=== PATIENT | female | born 1985 | race Caucasian/White ===

== ENCOUNTER 2022-03-28 13:58 | Outpatient (RCR) | payer OTHER, MEDICAID, SELFPAY ==
[2022-03-29] MEDS: RHO(D) IMMUNE GLOBULIN 300 MCG/2 ML SYRINGE IM (14:34)
== END 2022-06-26 23:59 | disposition home or self-care (01) ==
LOC: ANHLAB 13:58
PROVIDERS: Visit Provider Obstetrics & Gynecology
DX: Z29.13 Encounter for prophylactic Rho(D) immune globulin (principal); O36.0190 Maternal care for anti-D [Rh] antibodies, unspecified trimester, not applicable or unspecified; Z3A.00 Weeks of gestation of pregnancy not specified
CPT/HCPCS: 36415; 85461; 90384; 96372; J2790

== ENCOUNTER 2022-05-16 12:32 | Observation (INO) | payer OTHER, MEDICAID, SELFPAY ==
--- NOTE | 2022-05-16 12:32 | OBADM ---
This patient, Angelia Steele, admitted to the OB room OB Post 116 for observation. Patient/family oriented to hospital policies and general routines including ID bracelet, bed and alarms, visiting hours, pain management, procedures, bathroom and other care routines, personal items, smoking policy, room service/diet, and visiting hours. Patient/Family are encouraged to report perceived risks to care and to ask questions if they do not understand what they are told or what they should do.
[2022-05-16 12:45] VITALS: BMI 34.8
[2022-05-16 13:01] VITALS: BP 138/76; PULSE 86
[2022-05-16 13:16] VITALS: BP 140/80; PULSE 85
[2022-05-16 13:31] VITALS: BP 138/87; PULSE 99
[2022-05-16 13:37] LABS: Add Urine Microscopic? YES; Appearance Urine Cloudy (Clear); Bacteria Urine Trace /hpf; Bilirubin Urine Negative (Negative); Blood Urine Negative (Negative); Color Urine Yellow (Yellow); Glucose Urine UA Negative (Negative); Ketones Urine Trace mg/dL (Negative); Leukocyte Esterase Ur 1+ LEU/UL (NEGATIVE); Mucus Urine Rare /lpf; Nitrate Urine Negative (Negative); Protein Urine Negative (Negative); Specific Grav Ur 1.018 (1.001-1.035); Squamous Epithelial Cell Urine Moderate /hpf (Few); Urobilinogen Urine Negative mg/dL (<2.0); WBC Urine 0-3 /hpf (0-3)
[2022-05-16 13:46] VITALS: BP 117/63; PULSE 86
[2022-05-16 14:01] VITALS: BP 120/59; PULSE 87
--- NOTE | 2022-05-22 07:48 | P.PNOB_ITS ---
OB - Triage/Final Diagnosis Visit Information Comments/Additional reasons for admission: I have assessed the risk for this patient, Angelia Steele, and determined that she would benefit from observation care. Evaluation Laboratory results: Laboratory Tests 05/16/22 13:08 Urine Color Yellow Urine Appearance Cloudy H Urine pH 6.0 Ur Specific [place] 1.018 Urine Protein Negative Urine Glucose (UA) Negative Urine Ketones Trace Ur Blood (Man) Negative Urine Nitrate Negative Urine Bilirubin Negative Urine Urobilinogen Negative Ur Leukocyte Esterase 1+ H Urine WBC 0-3 Ur Squamous Epith Cells Moderate H Urine Bacteria Trace Urine Mucus Rare Final Diagnosis (1) Uterine contractions: Code(s): O47.9 - False labor, unspecified Status: Acute
== END 2022-05-16 14:04 | disposition home or self-care (01) ==
PROVIDERS: Admitting Provider Obstetrics & Gynecology; Visit Provider Obstetrics & Gynecology
DX: O47.03 False labor before 37 completed weeks of gestation, third trimester (principal); Z3A.35 35 weeks gestation of pregnancy
CPT/HCPCS: 81001; 87086; G0378; G0379

== ENCOUNTER 2022-05-17 14:58 | Observation (INO) | payer OTHER, MEDICAID, SELFPAY ==
--- NOTE | ~2022-05-17 | US_ITS ---
US renal BI 05/17/2022 17:10 Procedure: Realtime transabdominal ultrasound of the kidneys and bladder. Indication: Back pain Comparison: No prior studies for comparison. Findings: Renal echotexture is normal bilaterally without hydronephrosis, contour deforming mass or r enal calculus. The right kidney measures 11.2 cm and left kidney measures 12.3 cm. Bladder is not wel l distended for evaluation. Impression: 1: Unremarkable renal ultrasound. No stones, masses or hydronephrosis. Reviewed, dictated and finalized at location B. Impression: 1: Unremarkable renal ultrasound. No stones, masses or hydronephrosis.
--- NOTE | ~2022-05-17 | US_ITS ---
EXAMINATION: US OB limited w BPP DATE: 05/17/2022 17:12 INDICATION: Variables during third trimester TECHNIQUE: Real-time pelvic ultrasound was performed. The interpreting radiologist was not present fo r the study. COMPARISON: None. FINDINGS: There is a single living fetus in vertex presentation. The placenta is posterior. heart rate is 165 beats per minute (bpm). The amniotic fluid index is 13.3 cm which is normal (normal range: 7.9 c m to 24.9 cm). Biophysical profile performed by the technologist: breathing (30 sec sustained breathing in 30 minutes): 2 out of 2 movement (3 gross body movements in 30 minutes): 2 out of 2 tone (one episode of irzdhqq-sezolfjao-rrpirdd limb movement): 2 out of 2 Amniotic fluid pocket (2 cm): 2 out of 2 Total score: 8 out of 8 IMPRESSION: 1. Single living fetus in vertex presentation. 2. Biophysical profile 8 out of 8. 3. Normal amniotic fluid index. Reviewed, dictated and finalized at location A.
--- NOTE | 2022-05-17 14:58 | OBADM ---
This patient, Angelia Steele, admitted to the OB room OB Post 115 for observation. Patient/family oriented to hospital policies and general routines including ID bracelet, bed and alarms, visiting hours, pain management, procedures, bathroom and other care routines, personal items, smoking policy, room service/diet, and visiting hours. Patient/Family are encouraged to report perceived risks to care and to ask questions if they do not understand what they are told or what they should do.
[2022-05-17 15:41] VITALS: BP 147/92; PULSE 87
[2022-05-17 16:12] LABS: Basophils Percent Auto 0.1 % (0.2-1.2); Eosinophils Absolute Auto 0.1 K/mm3 (0-0.3); Eosinophils Percent Auto 0.7 % (0-4.4); Hematocrit 35.7 % (37.0-47.0); Hemoglobin 11.6 g/dL (12.0-15.0); Immature Granulocyte Absolute 0.02 K/mm3 (0.00-0.031); Immature Granulocyte Percent A 0.3 % (0-0.5); Lymphocytes Absolute Auto 1.43 K/mm3 (0.9-3.2); Lymphocytes Percent Auto 18.9 % (18.3-44.2); Mean Corpuscular HGB Conc 32.5 g/dl (32-36); Mean Corpuscular Hemoglobin 28.6 pg (26-34); Mean Corpuscular Volume 87.9 fl (80-100); Mean Platelet Volume 11.4 fl (7.4-10.4); Monocytes Absolute Auto 0.4 K/mm3 (0.1-0.6); Monocytes Percent Auto 5.8 % (2.6-8.5); Neutrophils Absolute Auto 5.6 K/mm3 (1.3-6.7); Neutrophils Percent Auto 74.2 % (45.5-73.1); Platelet Count Result 164 k/mm3 (150-375); Red Blood Count 4.06 M/mm3 (4.2-5.4); White Blood Count 7.6 K/mm3 (4.5-10.0)
[2022-05-17] MEDS: NIFEdipine 10 MG CAPSULE PO (16:20)
[2022-05-17 16:43] LABS: Alanine Aminotransferase 12 U/L (6-35); Albumin Level 4.1 g/dL (3.5-5.1); Alkaline Phosphatase 64 U/L (38-126); Anion Gap 9 mmol/L (8-16); Aspartate Amino Transferase 15 U/L (14-36); Bilirubin,Total 0.4 mg/dL (0.2-1.3); Blood Urea Nitrogen 10 mg/dL (7-17); Calcium 9.1 mg/dL (8.4-10.2); Carbon Dioxide 22 mmol/L (22-30); Chloride 106 mmol/L (98-107); Estimated Glomerular Filt Rate > 60; Glucose 73 mg/dL (65-110); Potassium 3.8 mmol/L (3.4-5.0); Sodium 137 mmol/L (137-145); Uric Acid 4.1 mg/dL (2.5-7.5)
[2022-05-17 16:44] LABS: Appearance Urine Clear (Clear); Bacteria Urine Trace /hpf; Bilirubin Urine Negative (Negative); Blood Urine Negative (Negative); Color Urine Yellow (Yellow); Glucose Urine UA Negative (Negative); Ketones Urine Trace mg/dL (Negative); Leukocyte Esterase Ur Negative LEU/UL (NEGATIVE); Mucus Urine Rare /lpf; Nitrate Urine Negative (Negative); Protein Urine Negative (Negative); RBC Urine 0-2 /hpf (0-2); Squamous Epithelial Cell Urine Rare /hpf (Few); Urobilinogen Urine 0.2 mg/dL (<2.0); WBC Urine 0-3 /hpf (0-3); pH Urine 6.5 (5.0-9.0)
[2022-05-17 16:51] LABS: Add Urine Microscopic? YES
[2022-05-17 17:05] VITALS: BP 140/81; PULSE 90; BMI 34.8
[2022-05-17 17:28] LABS: Total Protein Urine Random < 5 mg/dL; Ur Ttl Prot Creatinine Ratio < 0.05 mg/mg (0-0.20)
[2022-05-17 17:31] VITALS: BP 142/80; PULSE 93
[2022-05-17] MEDS: CYCLOBENZAPRINE HCL 10 MG TABLET PO (17:56)
--- NOTE | 2022-05-17 18:20 | PC.NURSE ---
Pt states she is feeling better and would like to be discharged.
--- NOTE | 2022-05-20 16:55 | PM.OBTRLD ---
OB - Triage/Final Diagnosis Visit Information Date of evaluation: 05/17/22 Reason for evaluation: other (pain) Comments/Additional reasons for admission: I have assessed the risk for this patient, Angelia Jordan Steele, and determined that she would benefit from observation care. Evaluation Laboratory results: Laboratory Tests 05/17/22 05/17/22 05/17/22 16:06 16:21 16:21 WBC 7.6 RBC 4.06 L Hgb 11.6 L Hct 35.7 L MCV 87.9 MCH 28.6 MCHC 32.5 RDW 14.0 Plt Count 164 MPV 11.4 H Immature Gran % (Auto) 0.3 Neut % (Auto) 74.2 H Lymph % (Auto) 18.9 [place] % (Auto) 5.8 Eos % (Auto) 0.7 Baso % (Auto) 0.1 L Lymph # (Auto) 1.43 [place] # (Auto) 0.4 Eos # (Auto) 0.1 Baso # (Auto) 0.0 Abs Immat Gran (auto) 0.02 Absolute Neuts (auto) 5.6 Absolute Nucleated RBC 0.0 Nucleated RBC % 0.0 Sodium 137 Potassium 3.8 Chloride 106 Carbon Dioxide 22 Anion Gap 9 BUN 10 Creatinine 0.70 Estim Creat Clear Calc Not Reportable Estimated GFR > 60 Glucose 73 Uric Acid 4.1 Calcium 9.1 Total Bilirubin 0.4 AST 15 ALT 12 Alkaline Phosphatase 64 Total Protein 8.0 Albumin 4.1 Urine Color Urine Appearance Urine pH Ur Specific [place] Urine Protein Urine Glucose (UA) Urine Ketones Ur Blood (Man) Urine Nitrate Urine Bilirubin Urine Urobilinogen Ur Leukocyte Esterase Urine RBC Urine WBC Ur Squamous Epith Cells Urine Bacteria Urine Mucus U Random Total Protein < 5 Urine Creatinine 92.0 Protein/Creat Ratio 2 < 0.05 05/17/22 16:22 WBC RBC Hgb Hct MCV MCH MCHC RDW Plt Count MPV Immature Gran % (Auto) Neut % (Auto) Lymph % (Auto) [place] % (Auto) Eos % (Auto) Baso % (Auto) Lymph # (Auto) [place] # (Auto) Eos # (Auto) Baso # (Auto) Abs Immat Gran (auto) Absolute Neuts (auto) Absolute Nucleated RBC Nucleated RBC % Sodium Potassium Chloride Carbon Dioxide Anion Gap BUN Creatinine Estim Creat Clear Calc Estimated GFR Glucose Uric Acid Calcium Total Bilirubin AST ALT Alkaline Phosphatase Total Protein Albumin Urine Color Yellow Urine Appearance Clear Urine pH 6.5 Ur Specific [place] 1.020 Urine Protein Negative Urine Glucose (UA) Negative Urine Ketones Trace Ur Blood (Man) Negative Urine Nitrate Negative Urine Bilirubin Negative Urine Urobilinogen 0.2 Ur Leukocyte Esterase Negative Urine RBC 0-2 Urine WBC 0-3 Ur Squamous Epith Cells Rare Urine Bacteria Trace Urine Mucus Rare U Random Total Protein Urine Creatinine Protein/Creat Ratio 2
--- NOTE | 2022-05-21 16:14 | PM.OBTRLD ---
OB - Triage/Final Diagnosis Visit Information Date of evaluation: 06/17/22 Reason for evaluation: other (abd pain) Comments/Additional reasons for admission: I have assessed the risk for this patient, Angelia Steele, and determined that she would benefit from observation care. Evaluation Laboratory results: Laboratory Tests 05/17/22 05/17/22 05/17/22 16:06 16:21 16:21 WBC 7.6 RBC 4.06 L Hgb 11.6 L Hct 35.7 L MCV 87.9 MCH 28.6 MCHC 32.5 RDW 14.0 Plt Count 164 MPV 11.4 H Immature Gran % (Auto) 0.3 Neut % (Auto) 74.2 H Lymph % (Auto) 18.9 [place] % (Auto) 5.8 Eos % (Auto) 0.7 Baso % (Auto) 0.1 L Lymph # (Auto) 1.43 [place] # (Auto) 0.4 Eos # (Auto) 0.1 Baso # (Auto) 0.0 Abs Immat Gran (auto) 0.02 Absolute Neuts (auto) 5.6 Absolute Nucleated RBC 0.0 Nucleated RBC % 0.0 Sodium 137 Potassium 3.8 Chloride 106 Carbon Dioxide 22 Anion Gap 9 BUN 10 Creatinine 0.70 Estim Creat Clear Calc Not Reportable Estimated GFR > 60 Glucose 73 Uric Acid 4.1 Calcium 9.1 Total Bilirubin 0.4 AST 15 ALT 12 Alkaline Phosphatase 64 Total Protein 8.0 Albumin 4.1 Urine Color Urine Appearance Urine pH Ur Specific [place] Urine Protein Urine Glucose (UA) Urine Ketones Ur Blood (Man) Urine Nitrate Urine Bilirubin Urine Urobilinogen Ur Leukocyte Esterase Urine RBC Urine WBC Ur Squamous Epith Cells Urine Bacteria Urine Mucus U Random Total Protein < 5 Urine Creatinine 92.0 Protein/Creat Ratio 2 < 0.05 05/17/22 16:22 WBC RBC Hgb Hct MCV MCH MCHC RDW Plt Count MPV Immature Gran % (Auto) Neut % (Auto) Lymph % (Auto) [place] % (Auto) Eos % (Auto) Baso % (Auto) Lymph # (Auto) [place] # (Auto) Eos # (Auto) Baso # (Auto) Abs Immat Gran (auto) Absolute Neuts (auto) Absolute Nucleated RBC Nucleated RBC % Sodium Potassium Chloride Carbon Dioxide Anion Gap BUN Creatinine Estim Creat Clear Calc Estimated GFR Glucose Uric Acid Calcium Total Bilirubin AST ALT Alkaline Phosphatase Total Protein Albumin Urine Color Yellow Urine Appearance Clear Urine pH 6.5 Ur Specific [place] 1.020 Urine Protein Negative Urine Glucose (UA) Negative Urine Ketones Trace Ur Blood (Man) Negative Urine Nitrate Negative Urine Bilirubin Negative Urine Urobilinogen 0.2 Ur Leukocyte Esterase Negative Urine RBC 0-2 Urine WBC 0-3 Ur Squamous Epith Cells Rare Urine Bacteria Trace Urine Mucus Rare U Random Total Protein Urine Creatinine Protein/Creat Ratio 2
== END 2022-05-17 18:30 | disposition home or self-care (01) ==
PROVIDERS: Advanced Practice Midwife; Admitting Provider Obstetrics & Gynecology; Visit Provider Obstetrics & Gynecology
DX: O26.893 Other specified pregnancy related conditions, third trimester (principal); R10.9 Unspecified abdominal pain; M54.9 Dorsalgia, unspecified; Z3A.35 35 weeks gestation of pregnancy
CPT/HCPCS: 36415; 76775; 76815; 76819; 80053; 81001; 82570; 84156; 84550; 85025; 87086; A9270; G0378; G0379

== ENCOUNTER 2022-05-31 13:35 | Outpatient (RCR) | payer OTHER, MEDICAID, SELFPAY ==
[2022-04-06 18:50] VITALS: BP 127/87; PULSE 98
[2022-05-31 14:33] LABS: Creatinine Urine 72.3 mg/dL
[2022-05-31 14:39] LABS: Alanine Aminotransferase 12 U/L (6-35); Albumin Level 3.6 g/dL (3.5-5.1); Alkaline Phosphatase 59 U/L (38-126); Anion Gap 11 mmol/L (8-16); Aspartate Amino Transferase 16 U/L (14-36); Bilirubin,Total 0.2 mg/dL (0.2-1.3); Blood Urea Nitrogen 10 mg/dL (7-17); Calcium 8.7 mg/dL (8.4-10.2); Carbon Dioxide 21 mmol/L (22-30); Chloride 104 mmol/L (98-107); Estimated Glomerular Filt Rate > 60; Glucose 86 mg/dL (65-110); Potassium 3.8 mmol/L (3.4-5.0); Sodium 136 mmol/L (137-145)
[2022-05-31 14:45] LABS: Hematocrit 35.5 % (37.0-47.0); Hemoglobin 11.3 g/dL (12.0-15.0); Mean Corpuscular HGB Conc 31.8 g/dl (32-36); Mean Corpuscular Hemoglobin 28.4 pg (26-34); Mean Corpuscular Volume 89.2 fl (80-100); Mean Platelet Volume 11.9 fl (7.4-10.4); Platelet Count Result 181 k/mm3 (150-375); Red Blood Count 3.98 M/mm3 (4.2-5.4); Red Cell Distribution Width 14.3 % (11.5-14.5); White Blood Count 6.8 K/mm3 (4.5-10.0)
[2022-05-31 14:54] LABS: Total Protein Urine Random < 5 mg/dL; Ur Ttl Prot Creatinine Ratio < 0.07 mg/mg (0-0.20)
[2022-05-31 15:34] LABS: Glucose Point of Care 77 mg/dl (65-105)
[2022-05-31] MEDS: SODIUM CHLORIDE 0.9% IV 500 ML IV CONT (15:37)
[2022-05-31] MEDS: diphenhydrAMINE HCl INJ 50 MG/ML VIAL 25 MG IV PUSH (15:39)
[2022-05-31] MEDS: PROCHLORPERAZINE EDISYLATE 10 MG/2 ML VIAL IV PUSH (15:43)
[2022-05-31 16:12] VITALS: BMI 35.0
== END 2022-05-31 16:45 | disposition home or self-care (01) ==
LOC: ANHOBOP 13:35
PROVIDERS: Visit Provider Obstetrics & Gynecology
DX: O36.8130 Decreased fetal movements, third trimester, not applicable or unspecified (principal); Z3A.30 30 weeks gestation of pregnancy
CPT/HCPCS: 36415; 59025; 80053; 82570; 82948; 84156; 84550; 85027; 96361; 96374; 96375; 99284; J0780; J1200; J7040

== ENCOUNTER 2022-06-03 07:11 | Inpatient (IN) | payer OTHER, MEDICAID, SELFPAY ==
[2022-06-03] VITALS (63 sets, daily range): BP systolic 112–162; BP diastolic 66–107; PULSE 67–150; RESP 14–18; TEMP 36.3–37.2; O2SAT 81–100; BMI 34.8
--- OUTSIDE RECORDS SUMMARY | 2022-06-03 07:21 | XMS_ITS | Encounter Summary ---
:1985 Author Reason for Visit None recorded. Assessment and Plan 1. Benign essential hypertension compli cating , childbirth and the puerperium - not delivered 2. History of section 3. Type 2 diabetes mellitus Discussion Note: None recorded.Patient educational handouts: No information available. Plan of Care Reminders Provider Appointments None recorded. ? ? Lab None recorded. ? ? Referral None recorded. ? ? Procedures None recorded. ? ? Surgeries None recorded. ? ? Imaging None recorded. ? ? Medications Name Start Date ? ? Baby Aspirin ? BD Lili 2nd Gen Pen Needle 32 gauge x ? TO BE USED WITH INSULIN PEN EVERY DAY cephalexin 500 mg capsule ? cyclobenzaprine 5 mg tablet ? Take 1 tablet 3 times a day by oral route as needed. Dexcom G6 Manager Life Sciences misc ? Dexcom G6 Sensor device ? USE EVERY 10 DAYS Dexcom G6 Transmitter device ? USE DIRECTED TEST FOUR TIMES DAILY FreeStyle Lancets 28 gauge ? FreeStyle Lite Meter kit ? FreeStyle Lite Strips ? Humalog KwikPen (U-100) Insulin 100 unit/mL subcutaneo us ? INJECT 4 UNITS UNDER THE SKIN BEFORE BREAKFAST DAILY. MAX DOSE 50 UNITS DAILY Humulin N NPH U-100 Insulin KwikPen 100 unit/mL (3 mL) subcutaneous ? INJECT 18 UNITS EVERY NIGHT AT BEDTIME Levemir FlexTouch U-100 Insulin 100 unit/mL (3 mL) sub cutaneous pen ? ADMINISTER 22 UNITS UNDER THE SKIN EVER Y NIGHT AT BEDTIME. MAX DOSING 50 UNIT PER DAY mupirocin 2 % topical ointment ? APPLY TOPICALLY TO THE AFFECTED AREA THREE TIMES FERNANDA Y FOR 10 DAYS Vitamin ?
--- OUTSIDE RECORDS SUMMARY | 2022-06-03 07:21 | XMS_ITS | Encounter Summary ---
:1985 Author Reason for Visit OB visit Assessment and Plan 1. Type 2 diabetes mellitus ? HbA1c (hemoglobin A1c), blood 2. Routine care Discussion Note: None recorded.Patient educational handouts: No information available. Plan of Care Reminders Provider Appointments None recorded. ? ? Lab HbA1C (Hemoglobin a1C), 05/06/2022 [facility] Blood (Lab) Referral None recorded. ? ? Procedures None [...] by oral route as needed. Dexcom G6 Pipe Processor misc ? Dexcom G6 Sensor device ? [...] FERNANDA Y FOR 10 DAYS Vitamin ? Toujeo Max U-300
--- OUTSIDE RECORDS SUMMARY | 2022-06-03 07:21 | XMS_ITS | Encounter Summary ---
:1985 Author Reason for Visit None recorded. Assessment and Plan 1. Pre-existing type 2 diabetes mellitu s in ? non-stress test Discussion Note: None recorded.Patient educational handouts: No information available. Plan of Care Reminders Provider Appointments None recorded. ? ? Lab None recorded. ? ? Referral None recorded. ? ? Procedures None recorded. ? ? Surgeries None recorded. ? ? Imaging Non-stress Test 05/06/2022 [place] Medications Name Start Date ? ? Baby Aspirin ? BD Lili 2nd Gen Pen Needle 32 gauge x ? TO BE USED WITH INSULIN PEN EVERY DAY cephalexin 500 mg capsule ? cyclobenzaprine 5 mg tablet ? Take 1 tablet 3 times a day by oral route as needed. Dexcom G6 Ios Architect misc ? Dexcom G6 Sensor device ? [...] 10 DAYS Vitamin ? Toujeo Max U-300 SoloStar 300 unit/mL (3 mL) subcutane ous insulin pen ? Unisom (doxylamine) ? Medications Adminis
--- OUTSIDE RECORDS SUMMARY | 2022-06-03 07:21 | XMS_ITS | Encounter Summary ---
:1985 Author Reason for Visit OB visit Assessment and Plan Assessment Note Patient is ___weeks . Discussed plan. 1. Routine care Discussion Note: None recorded.Patient educational [...] by oral route as needed. Dexcom G6 Cycle Director misc ? Dexcom G6 Sensor device ? [...]
--- OUTSIDE RECORDS SUMMARY | 2022-06-03 07:21 | XMS_ITS | Encounter Summary ---
[...] None recorded. ? ? Imaging Non-stress Test 05/27/2022 [place] Medications Name Start Date ? ? Baby Aspirin ? BD Lili 2nd Gen Pen Needle 32 gauge x ? TO BE USED WITH INSULIN PEN EVERY DAY cephalexin 500 mg capsule ? cyclobenzaprine 5 mg tablet ? Take 1 tablet 3 times a day by oral route as needed. Dexcom G6 Stamp Machine Servicer misc ? Dexcom G6 Sensor device ? [...]
--- OUTSIDE RECORDS SUMMARY | 2022-06-03 07:21 | XMS_ITS | Encounter Summary ---
:1985 Author Reason for Visit OB visit Assessment and Plan 1. Benign essential hypertension [...] oral route as needed. Dexcom G6 Manager Product Marketing misc ? Dexcom G6 Sensor device ? [...] FERNANDA Y FOR 10 DAYS Vitamin ? T
--- OUTSIDE RECORDS SUMMARY | 2022-06-03 07:21 | XMS_ITS | Encounter Summary ---
[...] None recorded. ? ? Imaging Non-stress Test 04/29/2022 [place] Medications Name Start Date ? ? Baby Aspirin ? BD Lili 2nd Gen Pen Needle 32 gauge x ? TO BE USED WITH INSULIN PEN EVERY DAY cephalexin 500 mg capsule ? cyclobenzaprine 5 mg tablet ? Take 1 tablet 3 times a day by oral route as needed. Dexcom G6 Workers Compensation Consultant misc ? Dexcom G6 Sensor device ? [...]
--- OUTSIDE RECORDS SUMMARY | 2022-06-03 07:21 | XMS_ITS | Encounter Summary ---
[...] None recorded. ? ? Imaging Non-stress Test 05/09/2022 [place] Medications Name Start Date ? ? Baby Aspirin ? BD Lili 2nd Gen Pen Needle 32 gauge x ? TO BE USED WITH INSULIN PEN EVERY DAY cephalexin 500 mg capsule ? cyclobenzaprine 5 mg tablet ? Take 1 tablet 3 times a day by oral route as needed. Dexcom G6 Computer Repairer misc ? Dexcom G6 Sensor device ? [...]
--- OUTSIDE RECORDS SUMMARY | 2022-06-03 07:21 | XMS_ITS | Encounter Summary ---
:1985 Author Reason for Visit OB visit Assessment and Plan 1. Benign essential hypertension compli cating , childbirth and the puerperium - not delivered 2. Complication due to diabetes mellitu s 3. History of section Discussion Note: None recorded.Patient educational handouts: No [...] by oral route as needed. Dexcom G6 General Laborer misc ? Dexcom G6 Sensor device ? [...]
--- OUTSIDE RECORDS SUMMARY | 2022-06-03 07:21 | XMS_ITS | Encounter Summary ---
[...] None recorded. ? ? Imaging Non-stress Test 05/02/2022 [place] Medications Name Start Date ? ? Baby Aspirin ? BD Lili 2nd Gen Pen Needle 32 gauge x ? TO BE USED WITH INSULIN PEN EVERY DAY cephalexin 500 mg capsule ? cyclobenzaprine 5 mg tablet ? Take 1 tablet 3 times a day by oral route as needed. Dexcom G6 Development Educator misc ? Dexcom G6 Sensor device ? [...]
--- OUTSIDE RECORDS SUMMARY | 2022-06-03 07:21 | XMS_ITS | Encounter Summary ---
:1985 Author Reason for Visit None recorded. Assessment and Plan 1. Benign essential hypertension compli cating , childbirth and the puerperium - not delivered ? US, obstetric, follow-up Discussion Note: None recorded.Patient educational handouts: No information available. Plan of Care Reminders Provider Appointments None recorded. ? ? Lab None recorded. ? ? Referral None recorded. ? ? Procedures None recorded. ? ? Surgeries None recorded. ? ? Imaging US, Obstetric, Follow-up 05/20/2022 [place] Medications Name Start Date ? ? Baby Aspirin ? BD Lili 2nd Gen Pen Needle 32 gauge x ? TO BE USED WITH INSULIN PEN EVERY DAY cephalexin 500 mg capsule ? cyclobenzaprine 5 mg tablet ? Take 1 tablet 3 times a day by oral route as needed. Dexcom G6 Gymnasium Teacher misc ? Dexcom G6 Sensor device ? [...]
--- OUTSIDE RECORDS SUMMARY | 2022-06-03 07:21 | XMS_ITS ---
:1985 Author Care Team Providers Name Role Phone Pamela [facility]on Primary Care Provider Unavailable Allergies Code Code System Name Reaction Severity Status Onset 7052 RxNorm Morphine ? ? Active ? Medications Name Status Start Date Stop Date ? ? Baby Aspirin Active ? Not available BD Lili 2nd Gen Pen Needle 32 gauge x Active ? Not available TO BE USED WITH INSULIN PEN EVERY DAY cephalexin 500 mg capsule Active ? Not av ailable cyclobenzaprine 5 mg tablet Active ? Not available Dexcom G6 Machine Dyer misc Active ? Not avai lable Dexcom G6 Sensor device Active ? Not avai lable Dexcom G6 Transmitter device Active ? Not available FreeStyle Lancets 28 gauge Active ? Not a vailable FreeStyle Lite Meter kit Active ? Not amanda ilable FreeStyle Lite Strips Active ? Not availa ble Humalog KwikPen (U-100) Insulin 100 unit/mL subcutaneous Active ? Not available INJECT 4 UNITS UNDER THE SKIN BEFORE BREAKFAST DAILY. MAX D OSE 50 UNITS DAILY Humulin N NPH U-100 Insulin KwikPen 100 unit/mL (3 mL) subcutane ous Active ? Not available INJECT 18 UNITS EVERY NIGHT AT BEDTIME Levemir FlexTouch U-100 Insulin 100 unit/mL (3 Active ? Not available mL) subcutaneous pen metformin 850 mg tablet Completed 09/08/2018 12/11/19 22 TAKE 1 TABLET BY MOUTH TWICE A DAY WITH MORNING AND EVENING HARSH L mupirocin 2 % topical ointment Active ? N ot available APPLY TOPICALLY TO THE AFFECTED AREA THREE TIMES DAILY FOR 10 D AYS Vitamin Active ? Not available Toujeo Max U-300 SoloStar 300 unit/mL (3 mL) Active ? Not available subcutaneous insulin pen Unisom (doxylamine) Act
--- OUTSIDE RECORDS SUMMARY | 2022-06-03 07:21 | XMS_ITS | Encounter Summary ---
:1985 Author Reason for Visit None recorded. Assessment and Plan 1. Gestational diabetes mellitus, class A>2< ? non-stress test Discussion Note: None recorded.Patient educational handouts: No information available. Plan of Care Reminders Provider Appointments None recorded. ? ? Lab None recorded. ? ? Referral None recorded. ? ? Procedures None recorded. ? ? Surgeries None recorded. ? ? Imaging Non-stress Test 05/23/2022 [place] Medications Name Start Date ? ? Baby Aspirin ? BD Lili 2nd Gen Pen Needle 32 gauge x ? TO BE USED WITH INSULIN PEN EVERY DAY cephalexin 500 mg capsule ? cyclobenzaprine 5 mg tablet ? Take 1 tablet 3 times a day by oral route as needed. Dexcom G6 Button Inspector misc ? Dexcom G6 Sensor device ? [...] insulin pen ? Unisom (doxylamine) ? Medications Administered
--- OUTSIDE RECORDS SUMMARY | 2022-06-03 07:21 | XMS_ITS | Encounter Summary ---
[...] None recorded. ? ? Imaging Non-stress Test 04/25/2022 [place] Medications Name Start Date ? ? Baby Aspirin ? BD Lili 2nd Gen Pen Needle 32 gauge x ? TO BE USED WITH INSULIN PEN EVERY DAY cephalexin 500 mg capsule ? cyclobenzaprine 5 mg tablet ? Take 1 tablet 3 times a day by oral route as needed. Dexcom G6 Food Photographer misc ? Dexcom G6 Sensor device ? [...] insulin pen ? Unisom (doxylamine) ? Medications Administ
--- OUTSIDE RECORDS SUMMARY | 2022-06-03 07:21 | XMS_ITS | Encounter Summary ---
[...] None recorded. ? ? Imaging Non-stress Test 05/13/2022 [place] Medications Name Start Date ? ? Baby Aspirin ? BD Lili 2nd Gen Pen Needle 32 gauge x ? TO BE USED WITH INSULIN PEN EVERY DAY cephalexin 500 mg capsule ? cyclobenzaprine 5 mg tablet ? Take 1 tablet 3 times a day by oral route as needed. Dexcom G6 Nuclear Technician misc ? Dexcom G6 Sensor device ? [...]
--- OUTSIDE RECORDS SUMMARY | 2022-06-03 07:21 | XMS_ITS | Encounter Summary ---
[...] None recorded. ? ? Imaging Non-stress Test 05/20/2022 [place] Medications Name Start Date ? ? Baby Aspirin ? BD Lili 2nd Gen Pen Needle 32 gauge x ? TO BE USED WITH INSULIN PEN EVERY DAY cephalexin 500 mg capsule ? cyclobenzaprine 5 mg tablet ? Take 1 tablet 3 times a day by oral route as needed. Dexcom G6 Photo Journalist misc ? Dexcom G6 Sensor device ? [...]
--- OUTSIDE RECORDS SUMMARY | 2022-06-03 07:22 | XMS_ITS | Encounter Summary ---
:1985 Author Reason for Visit None recorded. Assessment and Plan 1. Chronic hypertension complicating AN D/OR reason for care during ? US, obstetric, follow-up Discussion Note: None recorded.Patient educational handouts: No information available. Plan of Care Reminders Provider Appointments None recorded. ? ? Lab None recorded. ? ? Referral None recorded. ? ? Procedures None recorded. ? ? Surgeries None recorded. ? ? Imaging US, Obstetric, Follow-up 03/29/2022 [place] Medications Name Start Date ? ? Baby Aspirin ? BD Lili 2nd Gen Pen Needle 32 gauge x ? TO BE USED WITH INSULIN PEN EVERY DAY cephalexin 500 mg capsule ? cyclobenzaprine 5 mg tablet ? Take 1 tablet 3 times a day by oral route as needed. Dexcom G6 Dynamometer Mechanic misc ? Dexcom G6 Sensor device ? [...] mL) subcutane ous insulin pen ? Unisom (doxylamin
--- OUTSIDE RECORDS SUMMARY | 2022-06-03 07:22 | XMS_ITS | Encounter Summary ---
[...] by oral route as needed. Dexcom G6 Crutching Contractor misc ? Dexcom G6 Sensor device ? [...]
--- OUTSIDE RECORDS SUMMARY | 2022-06-03 07:22 | XMS_ITS | Encounter Summary ---
:1985 Author Reason for Visit None recorded. Assessment and Plan 1. Gestational diabetes mellitus, class A>2< ? US, obstetric, follow-up ? US, obstetric, biophysical profile + non-stress test Discussion Note: None recorded.Patient educational handouts: No information available. Plan of Care Reminders Provider Appointments None recorded. ? ? Lab None recorded. ? ? Referral None recorded. ? ? Procedures None recorded. ? ? Surgeries None recorded. ? ? Imaging US, Obstetric, Follow-up 04/22/2022 [place] ? US, Obstetric, Biophysical Profile + [place] Non-stress Test Medications Name Start Date ? ? Baby Aspirin ? BD Lili 2nd Gen Pen Needle 32 gauge x ? TO BE USED WITH INSULIN PEN EVERY DAY cephalexin 500 mg capsule ? cyclobenzaprine 5 mg tablet ? Take 1 tablet 3 times a day by oral route as needed. Dexcom G6 Transformer Coil Winder misc ? Dexcom G6 Sensor device ? [...] ? APPLY TOPICALLY TO THE AFFECTED AREA TH
--- OUTSIDE RECORDS SUMMARY | 2022-06-03 07:22 | XMS_ITS | Encounter Summary ---
[...] by oral route as needed. Dexcom G6 Ed Manager misc ? Dexcom G6 Sensor device ? [...]
--- OUTSIDE RECORDS SUMMARY | 2022-06-03 07:22 | XMS_ITS | Encounter Summary ---
[...] None recorded. ? ? Imaging Non-stress Test 04/22/2022 [place] Medications Name Start Date ? ? Baby Aspirin ? BD Lili 2nd Gen Pen Needle 32 gauge x ? TO BE USED WITH INSULIN PEN EVERY DAY cephalexin 500 mg capsule ? cyclobenzaprine 5 mg tablet ? Take 1 tablet 3 times a day by oral route as needed. Dexcom G6 Operations Research Director misc ? Dexcom G6 Sensor device [...]
--- OUTSIDE RECORDS SUMMARY | 2022-06-03 07:22 | XMS_ITS | Encounter Summary ---
:1985 Author Reason for Visit OB visit Assessment and Plan 1. Benign essential hypertension compli cating , childbirth and the puerperium - not delivered 2. History of section ? section (SURG) 3. Type 2 diabetes mellitus Discussion Note: None recorded.Patient educational handouts: No information available. Plan of Care Reminders Provider Appointments None recorded. ? ? Lab None recorded. ? ? Referral None recorded. ? ? Procedures None recorded. ? ? Surgeries Section (SURG) 04/03/2022 [facility] None recorded. ? ? Medications Name Start Date ? ? Baby Aspirin ? BD Lili 2nd Gen Pen Needle 32 gauge x /32 ? TO BE USED WITH INSULIN PEN EVERY DAY cephalexin 500 mg capsule ? cyclobenzaprine 5 mg tablet ? Take 1 tablet 3 times a day by oral route as needed. Dexcom G6 Plant Technician misc ? Dexcom G6 Sensor device [...] TO THE AFFECTED AREA THREE TIMES FERNANDA Worthy
--- NOTE | 2022-06-03 07:31 | LDADM ---
This patient, Angelia Steele, was admitted to Labor/Delivery/Recovery 119 on 06/03/22 at 07:11. Plans for labor, pain management and were discussed with patient. Patient/family oriented to hospital policies and general routines including ID bracelet, bed and alarms, visiting hours, pain management, procedures, bathroom and other care routines, personal items, smoking policy, room service/diet and guest tray routines, security routines, and visiting hours. Patient/Family are encouraged to report perceived risks to care and to ask questions if they do not understand what they are told or what they should do. See [facility] for further documentation.
[2022-06-03] MEDS: LACTATED RINGERS 1,000 ML 125 ML IV CONT (07:40)
[2022-06-03 07:44] LABS: Basophils Percent Auto 0.3 % (0.2-1.2); Eosinophils Absolute Auto 0.1 K/mm3 (0-0.3); Eosinophils Percent Auto 0.7 % (0-4.4); Hematocrit 37.2 % (37.0-47.0); Hemoglobin 12.1 g/dL (12.0-15.0); Immature Granulocyte Absolute 0.02 K/mm3 (0.00-0.031); Immature Granulocyte Percent A 0.3 % (0-0.5); Lymphocytes Absolute Auto 1.32 K/mm3 (0.9-3.2); Lymphocytes Percent Auto 17.6 % (18.3-44.2); Mean Corpuscular HGB Conc 32.5 g/dl (32-36); Mean Corpuscular Hemoglobin 28.3 pg (26-34); Mean Corpuscular Volume 86.9 fl (80-100); Monocytes Absolute Auto 0.4 K/mm3 (0.1-0.6); Monocytes Percent Auto 5.2 % (2.6-8.5); Neutrophils Absolute Auto 5.7 K/mm3 (1.3-6.7); Neutrophils Percent Auto 75.9 % (45.5-73.1); Platelet Count Result 178 k/mm3 (150-375); Red Blood Count 4.28 M/mm3 (4.2-5.4); Red Cell Distribution Width 14.5 % (11.5-14.5); White Blood Count 7.5 K/mm3 (4.5-10.0)
--- NOTE | 2022-06-03 08:52 | WPDANESEPPF ---
Anes - Initial Pre Proc Eval Procedure: Operation Date: 06/03/22 09:00 Proposed Procedures p Repeat Section - Pamela Lennon MD Date/Time: 06/03/22 08:52 Surgeon: Pamela Lennon MD Pre Op Diagnosis: R C/S Patient Data Age: 36 Gender: F Height: 1.68 m Weight: 98 kg Last Vital Signs Pulse 84 06/03/22 08:01 BP 144/83 H 06/03/22 08:01 O2 Del Method Room Air 06/03/22 07:30 Allergies Allergy/AdvReac Type Severity Reaction Status Date / Time No Known Allergies Allergy Unverified 03/21/16 09:59 Home Medications Medication Instructions Recorded Confirmed Type aspirin 81 mg tablet 81 mg PO DAILY 05/16/22 06/03/22 History blood-glucose sensor (Dexcom G6 05/16/22 05/16/22 History Sensor device) blood-glucose sensor (Dexcom G6 05/16/22 05/16/22 History Sensor device) insulin glargine U-300 conc 300 10 unit subcut DAILY 05/16/22 06/03/22 History unit/mL (1.5 mL) subcutaneous pen (Toujeo SoloStar U-300 Insulin) insulin glargine U-300 conc 300 106 unit subcut DAILY 05/16/22 06/03/22 History unit/mL (1.5 mL) subcutaneous pen (Toujeo SoloStar U-300 Insulin) insulin lispro 100 unit/mL 4 unit subcut DAILY PRN 05/16/22 06/03/22 History subcutaneous pen (Humalog KwikPen Hyperglycemia (U-100) Insulin) prenat.vits,madison,[id number] 1 tablet PO DAILY 05/16/22 06/03/22 History Laboratory Tests 06/03/22 06/03/22 06/03/22 07:37 07:37 07:38 WBC 7.5 K/mm3 K/mm3 (4.5-10.0) RBC 4.28 M/mm3 M/mm3 (4.2-5.4) Hgb 12.1 g/dL g/dL (12.0-15.0) Hct 37.2 % % (37.0-47.0) MCV 86.9 fl fl (80-100) MCH 28.3 pg pg (26-34) MCHC 32.5 g/dl g/dl (32-36) RDW 14.5 % % (11.5-14.5) Plt Count 178 k/mm3 k/mm3 (150-375) MPV 12.0 fl H fl (7.4-10.4) Immature Gran % (Auto) 0.3 % % (0-0.5) Neut % (Auto) 75.9 % H % (45.5-73.1) Lymph % (Auto) 17.6 % L % (18.3-44.2) [place] % (Auto) 5.2 % % (2.6-8.5) Eos % (Auto) 0.7 % % (0-4.4) Baso % (Auto) 0.3 % % (0.2-1.2) Lymph # (Auto) 1.32 K/mm3 K/mm3 (0.9-3.2) [place] # (Auto) 0.4 K/mm3 K/mm3 (0.1-0.6) Eos # (Auto) 0.1 K/mm3 K/mm3 (0-0.3) Baso # (Auto) 0.0 K/mm3 K/mm3 (0.0-0.1) Abs Immat Gran (auto) 0.02 K/mm3 K/mm3 (0.00-0.031) Absolute Neuts (auto) 5.7 K/mm3 K/mm3 (1.3-6.7) Absolute Nucleated RBC 0.0 K/mm3 K/mm3 (0.0-0.012) Nucleated RBC % 0.0 % % (0.0-0.2) RPR Pending Blood Type A Negative Antibody Screen Positive Antibody Identification Pending Antigen Identification Pending CONY, IgG Interpret Pending CONY, Poly Interpret Pending CONY, Complement Interp Pending Patient hx anesthesia problems: none Family hx anesthesia problems: none Results Review: All pre-operative results and documents have been reviewed as part of the pre-operative evaluation. [facility] Past Medical History Medical History (Updated 06/03/22 @ 09:02 by Pamela Lennon MD) GDM (gestational diabetes mellitus) Obesity Family History Family History (Updated 05/16/22 @ 14:30 by Toma Weston RN) Grandparent Diabetes mellitus Mother Hypertension Social History Social History Smoking status: Never smoker Substance use: never Lack of Transportation: No Lack of Food: Never True Current Housing: I Have Housing Concerned About Future Housing: No Difficulty Paying Gas/Electric Bills: No Difficulty Paying for Meds: No Currently Unemployed: No Education: Master's Degree or Higher Difficulty w/ Childcare or Family Care: No Spiritual care concerns: No Anes - Eval Final PreProcedure Day of Procedure 06/03/22 08:52 Patient weight: obese Heart: regular rate and rhythm
--- NOTE | 2022-06-03 08:57 | PM.IMHP ---
H&P: HPI History of Present Illness Date/Time: 06/03/22 08:57 Chief Complaint: repeat CS Narrative: Angelia is a 36yo at 38.2 for repeat CS. She has cHTN and DM2, sugars managed by Franca LLOYD on Toujeo and regular insulin. To start 40u Lantus HS after CS. PIH labs wnl on Fri when she had LOPEZ, resolved, none since. Also Rh neg. Review of Systems Review of Systems: All systems reviewed & are unremarkable except as noted in HPI and below PMFSH Past Medical History Medical History (Updated 06/03/22 @ 09:02 by Pamela Lennon MD) GDM (gestational diabetes mellitus) Obesity Family History Family History (Updated 05/16/22 @ 14:30 by Toma Weston RN) Grandparent Diabetes mellitus Mother Hypertension Social History Social History Smoking status: Never smoker Substance use: never Lack of Transportation: No Lack of Food: Never True Current Housing: I Have Housing Concerned About Future Housing: No Difficulty Paying Gas/Electric Bills: No Difficulty Paying for Meds: No Currently Unemployed: No Education: Master's Degree or Higher Difficulty w/ Childcare or Family Care: No Spiritual care concerns: No Meds Home Medications and Allergies Home Medications Medication Instructions Recorded Confirmed Type aspirin 81 mg tablet 81 mg PO DAILY 05/16/22 06/03/22 History blood-glucose sensor (Dexcom G6 05/16/22 05/16/22 History Sensor device) blood-glucose sensor (Dexcom G6 05/16/22 05/16/22 History Sensor device) insulin glargine U-300 conc 300 10 unit subcut DAILY 05/16/22 06/03/22 History unit/mL (1.5 mL) subcutaneous pen (Toujeo SoloStar U-300 Insulin) insulin glargine U-300 conc 300 106 unit subcut DAILY 05/16/22 06/03/22 History unit/mL (1.5 mL) subcutaneous pen (Toujeo SoloStar U-300 Insulin) insulin lispro 100 unit/mL 4 unit subcut DAILY PRN 05/16/22 06/03/22 History subcutaneous pen (Humalog KwikPen Hyperglycemia (U-100) Insulin) prenat.vits,madison,[id number]-isndh 1 tablet PO DAILY 05/16/22 06/03/22 History Allergies Allergy/AdvReac Type Severity Reaction Status Date / Time No Known Allergies Allergy Unverified 03/21/16 09:59 Vital Signs Vital Signs - 24 hr 06/03/22 07:30 06/03/22 08:00 06/03/22 08:01 Pulse Rate 82 84 Blood Pressure 145/92 H 144/83 H Oxygen Delivery Room Air Exam Const: General: no acute distress Resp: Effort & Inspection: normal respiratory effort Auscultation: clear to auscultation bilaterally Cardio: Rate: regular rate Rhythm: regular rhythm GI: GI Palp: Yes Soft to palpation Extrem: General: normal to inspection H&P: Results Labs Labs: Short CBC 06/03/22 Range/Units 07:37 WBC 7.5 (4.5-10.0) K/mm3 Hgb 12.1 (12.0-15.0) g/dL Hct 37.2 (37.0-47.0) % Plt Count 178 (150-375) k/mm3 Assessment and Plan Assessment and plan (1) Chronic hypertension affecting : Code(s): O10.919 - Unspecified pre-existing hypertension complicating , unspecified trimester Status: Acute (2) S/P repeat low transverse : Code(s): Z98.891 - History of uterine scar from previous surgery Status: Acute (3) DM2 (diabetes mellitus, type 2): Code(s): E11.9 - Type 2 diabetes mellitus without complications Status: Acute Plan consented for R CS lantus 40u HS starting tonight per MFM recent normal PIH labs, BPs at baseline will proceed
[2022-06-03] MEDS: DEXTROSE 5%/0.45% SOD CHL 1,000 ML 75 ML (09:00)
[2022-06-03] MEDS: ceFAZolin 2 GM/D5W 50 ML 2 GM/50 ML BAG IVPB (09:03)
--- NOTE | 2022-06-03 09:04 | WPDHPUPDATE1 ---
History and Physical Update Update Date/Time: 06/03/22 09:04 History and Physical has been reviewed, including an updated exam of the patient. There are NO changes in the patient's condition. Risks, benefits, and alternatives have been discussed and questions answered. Patient agrees to proceed with procedure.
--- NOTE | 2022-06-03 10:23 | P.PCNOB_ITS ---
OB - Delivery Note Procedure Delivery date: 06/03/22 Procedure: Procedures Operation Date: 06/03/22 09:00 <No data on this case meets the specified criteria> Repeat Low Transverse Section Events: Chronic Hypertension and Diabetes Mellitus Route of delivery: Specimen: Yes (placenta) Quantitative Blood Loss (ml): 465 Anesthesia type: Spinal Disposition: Floor Complications: none Narrative: The patient was taken to the OR and received spinal anesthesia. She was placed in dorsal supine position with left lateral tilt. SCDs and juarez were placed. She was prepped and draped in the normal sterile fashion. A Pfannensteil skin incision was made and carried through to the underlying layer of fascia. The fascia was incised in the midline and then extended laterally using Hilario scissors. The muscles were in the midline and the peritoneum was entered bluntly. The peritoneal incision was extended inferiorly and superiorly with care to avoid the bladder. The bladder blade was then inserted, the vesicouterine peritoneum was grasped, incised with Metzenbaum scissors, and a bladder flap created. The bladder blade was reinserted. A low transverse uterine incision was made with a scalpel and extended bluntly. AROM was performed and fluid was noted to be clear. The head was delivered, followed by the remainder of the baby. The baby's oropharynx was suctioned. A fter 30 seconds, the cord was clamped and cut and the infant was handed off. Cord blood was obtained and the placenta was then removed manually. The uterus was exteriorized. A moist lap sponge was used to curette the endometrium. The uterine incision was then closed with two layers of 0-Vicryl in a running, locking fashion. Good hemostasis was noted. The posterior cul de sac was irrigated with normal saline and cleared of all clot and debris. The uterus was returned to the abdomen. Both lateral gutters were then irrigated. The rectus muscles were inspected and found to be hemostatic. The fascia was reapproximated using 0-Vicryl in running fashion. The subcutaneous tissue was irrigated with normal saline and made hemostatic with Bovie electrocautery. The subcutaneous tissue was reapproximated with a layer of running 2-0 plain gut. The skin was then closed with 4-0 Vicryl in a subcuticular fashion. Steri strips and a bandage were applied. The uterus was evacuated. The patient tolerated the procedure very well. All counts were correct. She was taken to the recovery room in good condition. Baby Date of : 06/03/22 Time of : 09:34 Weeks of gestation at delivery: 38 Infant gender: Male Weight (pounds): 6 Weight (ounces): 9 presentation: vertex Placenta delivery description: Manual Removal Cord Vessel Description: 3 Vessels and Delayed Cord Clamping score one minute: 6 score five minutes: 9
[2022-06-03] MEDS: KETOROLAC 30 MG/ML VIAL (*BKC) IV PUSH (12:08)
--- NOTE | 2022-06-03 19:15 | PC.NURSE ---
blood sugar 1 hour post lunch, 145 per patient's self monitoring device.
--- NOTE | 2022-06-03 19:22 | PC.NURSE ---
Nipple shield provided to mother due to inverted left nipple. Reviewed good handwashing, cleaning the nipple shield and application. Discussed with mom the nipple shield precautions, possible complications associated with the risks and benefits. Reviewed practicing with a nipple shield, then without and how to protect the milk supply and production. Mom and baby guide referred to as a resource for using a nipple shield, out-patient services, community resources and when to call a provider. Mom voiced understanding of the importance of pumping, nipple stimulation and initiating a pumping schedule if continues to nurse with the shield.
--- NOTE | 2022-06-03 19:23 | PC.NURSE ---
Breast pump provided due to use of nipple shield. Instructions given on cleaning, care, usage, that there should be no pain, pumping schedule for milk production, collection, and storage of human milk. Parents are encouraged to record pumping schedule on the [feeding sheet/pumping log]. Patient was assessed for correct placement, flange size, to pump for comfort and nipple stretching/stimulation for adequate milk production every 3 hours (8 times in 24 hours). Mother voiced understanding of the education shared along with mom and baby guide for additional resource information.
[2022-06-03] MEDS: INSULIN GLARGINE (*BKC) 100 UNITS/ML 40 UNITS SUB-Q (21:12)
[2022-06-04 00:25] VITALS: BP 135/78; PULSE 100; RESP 16; TEMP 37.1; O2SAT 98
[2022-06-04] MEDS: HYDROcodone/acetaminophen (*CRX) 5-325 MG TABLET 1 TAB PO ×5 (01:28→21:17)
[2022-06-04] MEDS: SIMETHICONE 80 MG TAB.CHEW PO ×4 (01:29→17:21)
[2022-06-04] MEDS: IBUPROFEN 600 MG TABLET PO ×4 (01:29→21:17)
[2022-06-04 04:25] VITALS: BP 127/78; PULSE 93; RESP 16; TEMP 36.8; O2SAT 98
[2022-06-04 05:29] LABS: Basophils Percent Auto 0.3 % (0.2-1.2); Eosinophils Absolute Auto 0.1 K/mm3 (0-0.3); Eosinophils Percent Auto 0.6 % (0-4.4); Hematocrit 31.4 % (37.0-47.0); Immature Granulocyte Absolute 0.03 K/mm3 (0.00-0.031); Immature Granulocyte Percent A 0.4 % (0-0.5); Lymphocytes Percent Auto 13.8 % (18.3-44.2); Mean Corpuscular HGB Conc 31.8 g/dl (32-36); Mean Corpuscular Hemoglobin 28.2 pg (26-34); Mean Corpuscular Volume 88.5 fl (80-100); Mean Platelet Volume 12.2 fl (7.4-10.4); Monocytes Absolute Auto 0.5 K/mm3 (0.1-0.6); Monocytes Percent Auto 6.3 % (2.6-8.5); Neutrophils Absolute Auto 6.3 K/mm3 (1.3-6.7); Neutrophils Percent Auto 78.6 % (45.5-73.1); Platelet Count Result 139 k/mm3 (150-375); Red Blood Count 3.55 M/mm3 (4.2-5.4); Red Cell Distribution Width 14.5 % (11.5-14.5)
[2022-06-04 07:15] VITALS: BP 131/80; PULSE 98; RESP 16; TEMP 37.4; O2SAT 99
--- NOTE | 2022-06-04 07:19 | P.PNOB_ITS ---
OB - PN: Subj Subjective Date/time seen: 06/04/22 07:19 Patient comments: no complaints and pain well controlled feeding status: breast and bottle feeding Narrative: POD 1 from primary CS. Doing well. Normal lochia. Eating, ambulating, juarez out. BS after lunch 145 yesterday, 113 after dinner, was low starting 4am. OB - PN: Obj Data Labs CBC & Chem 7: 06/04/22 04:25 Labs: Laboratory Results - last 24 hr 06/03/22 06/03/22 06/04/22 07:37 07:38 04:25 WBC 7.5 8.0 RBC 4.28 3.55 L Hgb 12.1 10.0 L Hct 37.2 31.4 L MCV 86.9 88.5 MCH 28.3 28.2 MCHC 32.5 31.8 L RDW 14.5 14.5 Plt Count 178 139 L MPV 12.0 H 12.2 H Immature Gran % (Auto) 0.3 0.4 Neut % (Auto) 75.9 H 78.6 H Lymph % (Auto) 17.6 L 13.8 L [place] % (Auto) 5.2 6.3 Eos % (Auto) 0.7 0.6 Baso % (Auto) 0.3 0.3 Lymph # (Auto) 1.32 1.10 [place] # (Auto) 0.4 0.5 Eos # (Auto) 0.1 0.1 Baso # (Auto) 0.0 0.0 Abs Immat Gran (auto) 0.02 0.03 Absolute Neuts (auto) 5.7 6.3 Absolute Nucleated RBC 0.0 0.0 Nucleated RBC % 0.0 0.0 Blood Type A Negative Antibody Screen Positive Antibody Identification Inconclusive Antigen Identification Cancelled CONY, IgG Interpret Not Performed CONY, Poly Interpret Neg CONY, Complement Interp Not Performed Screen Baby's Blood Type Baby's CONY Doses of RhIg Required 06/04/22 04:25 WBC RBC Hgb Hct MCV MCH MCHC RDW Plt Count MPV Immature Gran % (Auto) Neut % (Auto) Lymph % (Auto) [place] % (Auto) Eos % (Auto) Baso % (Auto) Lymph # (Auto) [place] # (Auto) Eos # (Auto) Baso # (Auto) Abs Immat Gran (auto) Absolute Neuts (auto) Absolute Nucleated RBC Nucleated RBC % Blood Type A Negative Antibody Screen TNP Antibody Identification Antigen Identification CONY, IgG Interpret CONY, Poly Interpret CONY, Complement Interp Screen Negative Baby's Blood Type A pos Baby's CONY Negative Doses of RhIg Required 1 OB - PN A/P Plan day: 1 Plan: routine care Comments: decrease lantus to 34 tonight. otherwise routine pp care. Time Spent With Patient Time: Total time spent is greater than 50% in coordination of care (as documented) at patient's floor/unit and/or counseling patient: Exam Narrative: NAD abdomen soft, appropriately tender, incision bandaged Extremities nontender with 1+ edema
[2022-06-04] MEDS: MULTIVIT/MIN/PREN/FOL AC/IRON TABLET 1 TAB PO (07:57)
[2022-06-04] MEDS: DOCUSATE SODIUM 100 MG CAPSULE PO ×2 (07:57→17:20)
[2022-06-04 08:08] LABS: Glucose Point of Care 92 mg/dl (65-105)
[2022-06-04 09:30] VITALS: PULSE 98; RESP 16; O2SAT 99
[2022-06-04 10:19] LABS: Rapid Plasma Reagin Non-Reactive (NonReactive)
[2022-06-04 10:58] LABS: Glucose Point of Care 90 mg/dl (65-105)
--- NOTE | 2022-06-04 11:14 | WPDANLDNPN2 ---
Anes-Prog Note L&D-Neuraxial Date/Time: 06/04/22 11:14 Neuraxial medications: intrathecal PF morphine Opiod-related complaints: none Patient feedback: Patient satisfied with post-operative pain management.
--- NOTE | 2022-06-04 11:14 | WPDANLDPN2 ---
Anes-Prog Note L&D Date/Time: 06/04/22 11:14 Comfortable throughout: section Neuraxial method: spinal Epidural/Spinal procedure site: clean & non-tender Neuro status: Neuro function grossly intact. Cardiovascular status: normal Respiratory status: normal Airway patency: baseline Mental status: baseline Post-Op hydration status: normal Vital Signs: Last Vital Signs Temp 99.4 F 06/04/22 07:15 Pulse 98 06/04/22 07:15 Resp 16 06/04/22 07:15 BP 131/80 06/04/22 07:15 Pulse Ox 99 06/04/22 07:15 O2 Del Method Room Air 06/03/22 17:30 Pain score (VAS): 0 I/O: Intake & Output 06/03/22 06/04/22 06/04/22 23:59 07:59 15:59 Intake Total 1000 700 Output Total 200 2200 Balance 800 -1500 Post-procedural complaints: none Patient feedback: Patient satisfied with anesthetic care.
--- NOTE | 2022-06-04 11:44 | PC.NURSE ---
1107 - 1138 Introductions were made, then consulted with patient to assess needs related to . Mother led the conversation with her?plans to feed?her infant and the?experience so far. Mother was placed on the plan per primary RN report this morning. Mother requested assistance with . Mother works well with her with encouragement. Encouraged understanding of the benefits of skin to skin (unwrapping and placing vertically on her chest), responsive feeding and how to watch for early feeding signs, frequency of feeding on demand about every 8-12 times in 24 hours (every 2-3 hours), milk production, duration of feeding, signs of adequate intake/output and how to record on the feeding sheet. Reviewed positioning and ear, shoulder, hip alignment, supporting the breast, asymmetrical latch (off-center), and leading with the chin with a big open side gape. Mother voiced understanding of responsive feedings, stimulating with skin to skin, massage touch, talking to infant to encourage if it has been 2 -3 hours since the start of the last , to call if does not latch or there is discomfort with . Mother led the discussion and the risk and benefits regarding, , nipple shield, pumping, inverted nipples, milk production (including risks with her medical history and medication) bottle feeding with formula, feeding cues, skin to skin and pacifier use. was placed skin to skin on mother. Right nipple everts, left inverted nipple stimulates but doesn't fully birdie. demonstrates feeding cues, then once place to the breast closes his mouth and doesn't demonstrate feeding cues. Mother was encouraged to get to know her infant today post section and we would work with her again later. Reviewed to watch her for feeding cues today instead of giving only 15 min every 3 hours. Primary RN came and took infant to the nursery for testing.
--- NOTE | 2022-06-04 12:49 | PC.NURSE ---
[id number] Consulted with patient to assess needs related to . Reviewed positioning and ear, shoulder, hip alignment, supporting the breast, asymmetrical latch (off-center), and leading with the chin with a big open side gape. opens his mouth, latches, takes a suck, then stops. Several attempts were made on each breast. Infant is unable to maintain latch. Nipple care reviewed with optimal latch and good positioning. Mother initiated pumping. Father of baby was taught paced bottle feeding. Infant bottle feeds well. Mother voiced understanding of responsive feedings, stimulating with skin to skin and to encourage if it has been 2 -3 hours since the start of the last , to call if does not latch or there is discomfort with . Reported to the primary RN.
[2022-06-04] MEDS: RHO(D) IMMUNE GLOBULIN 300 MCG/2 ML SYRINGE IM (14:54)
[2022-06-04 15:42] LABS: Glucose Point of Care 123 mg/dl (65-105)
[2022-06-04 19:45] VITALS: BP 143/93; PULSE 103; RESP 16; TEMP 37.2; O2SAT 99
[2022-06-04 21:12] LABS: Glucose Point of Care 87 mg/dl (65-105)
[2022-06-04] MEDS: INSULIN GLARGINE (*BKC) 100 UNITS/ML 34 UNITS SUB-Q (21:16)
[2022-06-05] MEDS: HYDROcodone/acetaminophen (*CRX) 5-325 MG TABLET 1 TAB PO ×3 (00:16→07:02)
[2022-06-05] MEDS: IBUPROFEN 600 MG TABLET PO ×3 (03:17→16:24)
[2022-06-05 07:08] LABS: Glucose Point of Care 99 mg/dl (65-105)
--- NOTE | 2022-06-05 07:31 | P.PNOB_ITS ---
OB - PN: Subj Subjective Date/time seen: 06/05/22 07:31 Patient comments: no complaints and pain well controlled baby status: doing well [place] feeding status: exclusively breast feeding Narrative: fasting low even with decreased HS insulin OB - PN: Obj Data Labs CBC & Chem 7: 06/04/22 04:25 Labs: Laboratory Results - last 24 hr 06/03/22 06/04/22 06/04/22 07:37 04:25 08:01 POC Capillary Glucose 92 RPR Non-reactive Blood Type A Negative Antibody Screen TNP Screen Negative Baby's Blood Type A pos Baby's CONY Negative Doses of RhIg Required 1 06/04/22 06/04/22 06/04/22 10:52 15:33 21:09 POC Capillary Glucose 90 123 H 87 RPR Blood Type Antibody Screen Screen Baby's Blood Type Baby's CONY Doses of RhIg Required 06/05/22 07:05 POC Capillary Glucose 99 RPR Blood Type Antibody Screen Screen Baby's Blood Type Baby's CONY Doses of RhIg Required OB - PN A/P Assessment and Plan (1) DM2 (diabetes mellitus, type 2): Code(s): E11.9 - Type 2 diabetes mellitus without complications Status: Acute (2) S/P repeat low transverse : Code(s): Z98.891 - History of uterine scar from previous surgery Status: Acute Plan day: 2 Plan: routine care Comments: decrease NPH at night to 25. possibly home tomorrow. Time Spent With Patient Time: Total time spent is greater than 50% in coordination of care (as documented) at patient's floor/unit and/or counseling patient: Exam Narrative: NAD abdomen soft, appropriately tender, incision CDI Extremities nontender with 1+ edema
[2022-06-05] MEDS: DOCUSATE SODIUM 100 MG CAPSULE PO ×2 (08:15→16:24)
[2022-06-05] MEDS: MULTIVIT/MIN/PREN/FOL AC/IRON TABLET 1 TAB PO (08:15)
[2022-06-05 08:45] VITALS: BP 138/88; PULSE 90; RESP 16; TEMP 37.5; O2SAT 100
[2022-06-05] MEDS: MAGNES & ALUM HYD/SIMETH/DIPHENHYD/LIDOCAINE 119 ML MOUTHWASH BY MOUTH (10:08)
[2022-06-05] MEDS: HYDROcodone/acetaminophen (*CRX) 10-325 MG TABLET 1 TAB PO ×4 (10:09→19:45)
[2022-06-05] MEDS: SIMETHICONE 80 MG TAB.CHEW PO ×4 (10:09→19:45)
[2022-06-05 10:51] LABS: Glucose Point of Care 122 mg/dl (65-105)
--- NOTE | 2022-06-05 13:15 | PC.NURSE ---
Patient viewed the discharge video Mother & Baby Care, The First Two Weeks . Patient was given the opportunity and encouraged to ask questions. Patient verbalized understanding of information shared and has been given the mother/baby guide for home reference.
[2022-06-05 14:16] LABS: Glucose Point of Care 86 mg/dl (65-105)
--- NOTE | 2022-06-05 16:55 | PC.NURSE ---
1539 - Primary RN reported mother is pumping and bottle feeding her infant.
[2022-06-05 19:50] VITALS: BP 143/82; PULSE 106; RESP 17; TEMP 36.6; O2SAT 99
[2022-06-05] MEDS: INSULIN GLARGINE (*BKC) 100 UNITS/ML 25 UNITS SUB-Q (20:52)
[2022-06-05 20:58] LABS: Glucose Point of Care 133 mg/dl (65-105)
[2022-06-06] MEDS: SIMETHICONE 80 MG TAB.CHEW PO ×4 (03:42→13:10)
[2022-06-06] MEDS: IBUPROFEN 600 MG TABLET PO ×2 (03:43→09:55)
[2022-06-06] MEDS: HYDROcodone/acetaminophen (*CRX) 10-325 MG TABLET 1 TAB PO ×5 (03:43→13:10)
[2022-06-06 06:49] LABS: Glucose Point of Care 62 mg/dl (65-105)
[2022-06-06 07:45] VITALS: BP 138/85; PULSE 106; RESP 18; TEMP 37.5; O2SAT 100
[2022-06-06 08:04] LABS: Glucose Point of Care 89 mg/dl (65-105)
--- NOTE | 2022-06-06 08:34 | PM.OBPNVD ---
OB - PN: Subj Subjective Date/time seen: 06/06/22 08:34 Patient comments: no complaints, pain well controlled and tolerating diet OB - PN: Obj Data Labs CBC & Chem 7: 06/04/22 04:25 Labs: Laboratory Results - last 24 hr 06/05/22 06/05/22 06/05/22 10:46 14:12 20:54 POC Capillary Glucose 122 H 86 133 H 06/06/22 06/06/22 06:47 08:00 POC Capillary Glucose 62 L 89 OB - PN A/P Plan day: 2 Plan: routine care and discharge home Comments: to discharge without insulin - to D/C insulin and check sugars - f/u next week to see sugars Time Spent With Patient Time: Total time spent is greater than 50% in coordination of care (as documented) at patient's floor/unit and/or counseling patient: Exam Const: General: comfortable and no acute distress Resp: Effort & Inspection: normal respiratory effort Auscultation: no rales, no rhonchi and no wheezes Cardio: Rate: regular rate Heart sounds: no click, no murmurs and no rubs GI: GI Palp: Yes Soft to palpation and No Tenderness to palpation present (GI) Auscultation: normal bowel sounds Extrem: General: normal to inspection, no pedal edema and no calf tenderness
[2022-06-06] MEDS: MULTIVIT/MIN/PREN/FOL AC/IRON TABLET 1 TAB PO (09:46)
[2022-06-06] MEDS: DOCUSATE SODIUM 100 MG CAPSULE PO (09:46)
[2022-06-06 11:31] LABS: Glucose Point of Care 108 mg/dl (65-105)
--- NOTE | 2022-06-06 13:55 | PC.NURSE ---
Primary RN reported to RN that mother plans to pump and feed.
[2022-06-07 08:32] VITALS: BP 139/88; PULSE 90; RESP 20; TEMP 36.6; O2SAT 99
--- NOTE | 2022-06-30 21:39 | PM.OBDSVD ---
DS: Admitting Diagnosis Discharge Date 06/06/22 Admitting Diagnosis term OB - DS: Summary OB Procedures : None OB Procedures Intrapartum: Spontaneous Vag Delivery OB Procedures: : None Peripartum Data Procedures: Procedures Operation Date: 06/03/22 09:00 Actual Procedure Side Surgeon p Repeat Section Not Applicable Pamela Lennon MD Time Spent with Patient Time attestation: Total time spent providing and/or coordinating discharge services: DS: Data Data Completed and Pending Completed studies during hospitalization: Pending at discharge 06/03/22 10:52 Surgical [PTH] Routine Discharge Plan Discharge Consulting providers: Christiano Berry ; Jesenia Hawkins Discharging Clinician: Kapil Bo Patient Disposition: Home, Self-Care Activity: pelvic rest Diet: regular Discharge Instructions: Education: Mom and Baby Guide Given to: Mother Follow-Up: Call your delivering provider's office for an appointment to be seen in: 1 Week Mom and baby should come to the [facility] for the follow-up appointment. Appointment Date/Time: June 07, 2022 at 8:00 am What to expect at your follow-up visit: Blood Pressure Check Physical Assessment Call [phone] if you are unable to keep your appointment time. BREAST CARE: * Wear a snug supportive bra. * For engorgement discomfort: Breast Feeding: * Apply warm moist washcloths * Express milk as needed to relieve engorgement * Wear loose clothing Bottle Feeding: * May apply ice packs * For sore nipples: * Identify correct latch-on * Apply warm moist washcloths before and after nursing * Air dry nipples after nursing * May apply Lansinoh cream to nipples ABDOMINAL INCISION: * Allow incision to air dry * Do NOT use lotions or powders on your incision * When showering, allow soap and water to run over the incision, but do not wash incision EPISIOTOMY/PERINEAL CARE: * Until bleeding stops, use your denise bottle after urinating * Change your pad frequently throughout the day * You may take sitz baths several times a day (fill your bathtub with warm water and soak for 20 minutes.) Do NOT bathe in the water * No tub baths until seen by your physician - You may shower ACTIVITY: * Rest as much as possible. * Do not exercise or lift anything heavier than your baby (such as laundry or other children.) * Avoid stairs or driving as much as possible. * Do not put anything into the vagina. No douching, tampons, or sexual activity until seen by physician. NOTIFY PHYSICIAN IF YOU HAVE ANY QUESTIONS OR IF ANY OF THE FOLLOWING SYMPTOMS OCCUR: * If your incision becomes red, swollen, or more painful than what you have experienced in the hospital. * If your vaginal bleeding becomes foul smelling. * If your vaginal bleeding becomes more heavy than a period or if your bleeding changes from pink to bright red. However, you may pass an occasional walnut-sized clot once or twice for the first week . * If you experience a sharp, shooting pain in your calves. * If you discover a hard, reddened area on your breast or if you experience flu-like symptoms. DIET: * Eat regular, well-balanced meals. * Drink plenty of fluids daily. If , drink to thirst. Stand Alone Forms: General Discharge Information Follow-up/Referrals: Kapil Bo MD [Physician] - Discharge Medications: Continued aspirin 81 mg Tablet 81 mg PO DAILY insulin lispro [Humalog KwikPen Insulin] 100 unit/mL insulin pen 4 unit SUBCUT DAILY PRN (Reason: Hyperglycemia) prenat.vits,madison,hip-wspm-rkwqs Tablet 1 tablet PO DAILY Toujeo SoloStar U-300 Insulin 300 unit/mL (1.5 mL) Insulin Pen 106 unit SUBCUT DAILY Toujeo SoloStar U-300 Insulin 300 unit/mL (1.5 mL) Insulin Pen 10 unit SUBCUT DAILY (DME) Dexcom G6 Sensor
== END 2022-06-06 14:35 | disposition home or self-care (01) | DRG 787 ==
LOC: ANHOB2 06-06 13:19 → ANHLDR 06-07 08:56 → ANHOB2 06-07 08:56
PROVIDERS: Admitting Provider Obstetrics & Gynecology; Visit Provider Obstetrics & Gynecology
PROC: 10D00Z1 Extraction of Products of Conception, Low, Open Approach (ICD-10-PCS; CPT 59514; principal; 2022-06-03 09:00)
DX: O34.219 Maternal care for unspecified type scar from previous cesarean delivery (principal); O10.92 Unspecified pre-existing hypertension complicating childbirth; O99.214 Obesity complicating childbirth; O24.424 Gestational diabetes mellitus in childbirth, insulin controlled; Z3A.38 38 weeks gestation of pregnancy; Z37.0 Single live birth
CPT/HCPCS: 36415; 82948; 85025; 85461; 86592; 86850; 86880; 86900; 86901; 88307; 90384; A9270; J0690; J1815; J1885; J2274; J2790; J3010; J7030; J7120